=== PATIENT | female | born 1960 | race Two or more races ===

== ENCOUNTER → 2019-07-02 | Outpatient (CLI) | payer OTHER ==
--- NOTE | 2019-07-02 23:05 | EKG REPORT ---
SEVERITY:- BORDERLINE ECG - SINUS RHYTHM BORDERLINE T ABNORMALITIES, INFERIOR LEADS : Confirmed by: Tiffanie Navarro 02-Jul-2019 23:04:35
--- NOTE | 2019-07-03 17:16 | XCELERA REPORT ---
[address] [address] Transthoracic Echocardiogram Report Name: YANN STOUT Age: 58 yrs Gender: Female : 1960 Patient Status: Outpatient Patient Location: Study Date: 07/02/2019 01:04 PM Height: 62 in Weight: 159 lb BSA: 1.7 m2 Procedure: A complete two-dimensional transthoracic echocardiogram was performed (2D, M-mode, spectral and color flow Doppler). The study was technically difficult with many images being suboptimal in quality. Reason For Study: CP Ordering Physician: [facility] Performed By: Nuria Roman Interpretation Summary The study was technically difficult with many images being suboptimal in quality. Left ventricular systolic function is borderline reduced. The left ventricle is grossly normal size. There is mild concentric left ventricular hypertrophy. LV diastolic function could not be adequately assessed. There is apical wall mild hypokinesis The right ventricular systolic function is normal. The left atrial size is normal. The right atrium is normal in size There is a trace amount of mitral regurgitation There is no mitral valve stenosis. No aortic regurgitation is present. There is no aortic valve stenosis No tricuspid regurgitation. There is no tricuspid stenosis. The pulmonic valve is not well visualized. The aortic root is not well visualized but is probably normal size. The inferior vena cava appeared normal and decreased > 50% with respiration (RAP 5-10 mmHg) Minimal pericardial effusion. MMode/2D Measurements & Calculations RVDd: 2.7 cm LVIDd: 5.1 cm FS: 37.4 % Ao root diam: IVSd: 0.83 cm LVIDs: 3.2 cm EDV(Teich): 2.9 cm 122.0 ml Ao root area: LVPWd: 0.94 cm ESV(Teich): 40.1 ml6.8 cm2 EF(Teich): 67.1 % EDV(MOD-sp4): SV(MOD-sp4): 78.9 ml 46.3 ml ESV(MOD-sp4): 32.6 ml EF(MOD-sp4): 58.7 % Doppler Measurements & Calculations MV E max jose armando: MV dec slope: Ao V2 max: LV V1 max P.8 cm/sec 133.5 cm/sec 4.9 mmHg MV A max jose armando: 360.7 cm/sec2 Ao max PG: LV V1 max: 83.8 cm/sec MV dec time: 0.21 sec 7.1 mmHg 111.2 cm/sec MV E/A: 0.89 PA V2 max: Pulm Sys Jose Armando: 70.9 cm/sec 53.3 cm/sec PA max P.0 mmHgPulm Craft Jose Armando: 38.8 cm/sec Pulm A Revs Jose Armando: 24.3 cm/sec Pulm A Revs Dur: 0.13 sec Pulm S/D: 1.4 Left Ventricle The left ventricle is grossly normal size. There is mild concentric left ventricular hypertrophy. Left ventricular systolic function is borderline reduced. LV diastolic function could not be adequately assessed. There is apical wall mild hypokinesis. Right Ventricle The right ventricle is grossly normal size. There is normal right ventricular wall thickness. The right ventricular systolic function is normal. Atria The right atrium is normal in size. The left atrial size is normal. Interarterial septum not well visualized and not well dopplered. Cannot comment on ASD/PFO presence. Mitral Valve The mitral valve leaflets are sclerotic, but show no functional abnormalities. There is no mitral valve stenosis. There is a trace amount of mitral regurgitation. Aortic Valve The aortic valve is not well visualized secondary to technical limitations. There is no aortic valve stenosis. No aortic regurgitation is present. Tricuspid Valve The tricuspid valve is not well visualized secondary to technical limitations. There is no tricuspid stenosis. No tricuspid regurgitation. Pulmonic Valve The pulmonic valve is not well visualized. Great Vessels The aortic root is not well visualized but is probably normal size. The inferior vena cava appeared normal and decreased > 50% with respiration (RAP 5-10 mmHg). Effusions Minimal pericardial effusion. : [facility] Tiffanie Navarro
== END ==
LOC: SP 11:58
DX: R07.9 Chest pain, unspecified (principal)
CPT/HCPCS: 93005; 93010; 93306

== ENCOUNTER 2019-10-05 09:28 | Emergency (ER) | payer OTHER ==
[2019-10-05] MEDS ORDERED: METHYLPREDNISOLONE INJ 125 MG/2 ML SDV IV ONE (09:54)
[2019-10-05] MEDS ORDERED: IPRATROPIUM/ALBUTEROL 0.5-2.5 MG/3 ML AMPUL NEB ONE (09:54)
--- NOTE | 2019-10-05 09:56 | ER Document Report ---
ED Medical Screen (RME) - General Chief Complaint: Asthma Exacerbation Stated Complaint: DIFFICULTY BREATHING Time Seen by Provider: 10/05/19 09:50 Primary Care Provider: MOMO WATTERS [Primary Care Provider] - Follow up as needed Notes: Patient is a 58-year-old female with a history of asthma who presents to the emergency department with a chief complaint of cough. Patient reports she has felt chills and feverish for about 1 week. Patient reports she is had a productive cough with yellow to green sputum. Patient reports she does have sick contacts at home with similar symptoms. Patient reports she has been using her albuterol and her Flovent with minimal relief. Patient reports she still is having a productive constant cough and wheezing. Patient reports she has not been seen by physician in the past week for the symptoms. Patient denies nausea, vomiting or diarrhea. TRAVEL OUTSIDE OF THE [place] IN LAST 30 DAYS: No - Related Data Allergies/Adverse Reactions: No Known Allergies Allergy (Verified 10/05/19 09:37) Home Medications: albuterol. flovent Past Medical History - Social History Chew tobacco use (# tins/day): No Frequency of alcohol use: None Drug Abuse: None Physical Exam - Vital signs Vitals: Temp Pulse Resp BP Pulse Ox 99.5 F 88 20 162/79 H 97 10/05/19 09:32 10/05/19 09:32 10/05/19 09:32 10/05/19 09:32 10/05/19 09:32 - Respiratory Notes: Patient has a constant productive cough during assessment. Patient does have expiratory wheezing noted throughout all lung simon. Course - Re-evaluation Re-evalutation: 10/05/19 09:55 We will initiate chest x-ray, [facility]. I have greeted and performed a rapid initial assessment of this patient. A comprehensive ED assessment and evaluation of the patient, analysis of test results and completion of the medical decision making process will be conducted by additional ED providers. - Vital Signs Vital signs: Temp Pulse Resp BP Pulse Ox 99.5 F 88 20 162/79 H 97 10/05/19 09:38 10/05/19 09:32 12 09:38 10/05/19 09:32 10/05/19 09:38 Doctor's Discharge - Discharge Referrals: MOMO WATTERS [Primary Care Provider] - Follow up as needed
--- NOTE | 2019-10-05 10:31 | RADIOLOGY REPORT (SQ) ---
EXAM DESCRIPTION: CHEST 2 VIEWS COMPLETED DATE/TIME: 10/05/2019 10:04 am REASON FOR STUDY: productive cough x 1 week COMPARISON: None. TECHNIQUE: Frontal and lateral radiographic views of the chest acquired. NUMBER OF VIEWS: Two view. LIMITATIONS: None. FINDINGS: LUNGS AND PLEURA: No opacities, masses or pneumothorax. No pleural effusion. MEDIASTINUM AND HILAR STRUCTURES: No masses or contour abnormalities. HEART AND VASCULAR STRUCTURES: Heart normal size. No evidence for failure. BONES: No acute findings. HARDWARE: None in the chest. OTHER: No other significant finding. IMPRESSION: NO SIGNIFICANT RADIOGRAPHIC FINDING IN THE CHEST. TECHNICAL DOCUMENTATION: JOB ID: [id number] [employer]- All Rights Reserved Reading location - IP/workstation name: [email or web address]
--- NOTE | 2019-10-05 12:35 | ER Document Report ---
HPI - HPI Time Seen by Provider: 10/05/19 09:50 Pain Level: 1 Notes: Patient is a 58-year-old female with history of asthma who presents complaining of wheezing and dry cough over the past week. Patient does have subjective fevers intermittently. There is a similar illness running through the household currently. She is otherwise able to eat and drink without difficulty. She is urinating normally. She does have an inhaler that she has been using at home as well. Denies drug allergies. No other concerns or complaints. Denies any headache, current fever, neck pain, URI, sore throat, chest pain, palpitations, syncope, shortness of breath, dyspnea, abdominal pain, nausea/vomiting/diarrhea, urinary retention, dysuria, hematuria, or rash. - ROS Systems Reviewed and Negative: Yes All other systems reviewed and negative - CONSTITUTIONAL Constitutional: REPORTS: Fever - at night - EENT EENT: REPORTS: Sore Throat - hurts when coug - NEURO Neurology: REPORTS: Headache - with coughing - RESPIRATORY Respiratory: REPORTS: Trouble Breathing, Coughing - REPRODUCTIVE Reproductive: DENIES: : Past Medical History - Social History Smoking Status: Never Smoker Chew tobacco use (# tins/day): No Frequency of alcohol use: None Drug Abuse: None Family History: Reviewed & Not Pertinent Patient has suicidal ideation: No Patient has homicidal ideation: No Pulmonary Medical History: Reports: Hx Asthma Past Surgical History: Reports: Hx Section Vertical Provider Document - CONSTITUTIONAL Agree With Documented VS: Yes Notes: PHYSICAL EXAMINATION: GENERAL: Well-appearing, well-nourished and in no acute distress. A&Ox4. Answers questions appropriately. Moves comfortably w/o notable distress HEAD: Atraumatic, normocephalic. EYES: Pupils equal round and reactive to light, extraocular movements intact, sclera anicteric, conjunctiva are normal. ENT: Nares patent and with clear discharge. oropharynx no erythema without exudates. No tonsilar hypertrophy without erythema or exudate. No palatine shift. Uvula midline. No tongue protrusion. No drooling, hoarseness, or airway compromise. Moist mucous membranes. No sinus tenderness. NECK: Normal range of motion, supple without lymphadenopathy. No rigidity/meningismus. LUNGS: Breath sounds clear to auscultation bilaterally and equal. No wheezes rales or rhonchi. No retractions HEART: Regular rate and rhythm without murmurs, rubs, gallops. ABDOMEN: Soft, nontender, nondistended abdomen. No guarding, no rebound. Normal bowel sounds present. No CVA tenderness bilaterally. NEUROLOGICAL: Normal speech, normal gait. PSYCH: Normal mood, normal affect. SKIN: Warm, Dry, normal turgor, no rashes or lesions noted. - INFECTION CONTROL TRAVEL OUTSIDE OF THE [place] IN LAST 30 DAYS: No Course - Re-evaluation Re-evalutation: 10/05/19 12:33 Patient is an afebrile, well-hydrated, 58-year-old female who presents to the emergency department with an acute URI/asthma exacerbation, suspect viral otherwise. Vitals are acceptable without significant tachycardia, tachypnea, or hypoxia. PE is otherwise unremarkable. She is nontoxic-appearing and is tolerating p.o. without difficulty. Lungs are clear to auscultation bilaterally. CXR unremarkable. Pt recieved solumedrol and a duoneb treatment. No further labs or imaging warranted at this time. Low suspicion for any menin gitis, sepsis, peritonsillar/pharyngeal abscess, respiratory compromise, Harlan's, or other emergent systemic condition at this time. Patient is aware this condition can change from initial presentation and she needs to monitor symptoms closely. Conservative measures otherwise for symptoms. Recheck with your PCM in 2-3 days. Return to the ED with any worsening/concerning symptoms otherwise as reviewed in discharge. Patient is in agreement. - Vital Signs Vital signs: Temp Pulse Resp BP Pulse Ox 99.5 F 88 20 162/79 H 97 10/05/19 09:38 10/05/19 09:32 10/05/19 09:38 10/05/19 09:32 10/05/19 09:38 Discharge - Discharge Clinical Impression: Acute URI Asthma exacerbation Qualifiers: Asthma severity: mild Asthma persistence: intermittent Qualified Code(s): J 45.21 - Mild intermittent asthma with (acute) exacerbation Condition: Stable Disposition: HOME, SELF-CARE Instructions: Upper Respiratory Illness ([facility]), Asthma ([facility]) Additional Instructions: Maintain adequate fluid intake tylenol/ibuprofen as needed alternating every 3 hours for fever/body ache over the counter cold medication as needed for symptoms Humidified air may help Wash your hands regularly Wear a mask when coughing F/u: with your PCM in 2-3 days for a recheck Return to the ED with any fever, altered mental status/behavior, chest pain, palpitations, syncope, headache, neck pain/stiffness, shortness of breath, chest pains, wheezing, drooling, trouble swallowing/breathing, abdominal pain, n/v/d, rash, or worsening/concerning symptoms otherwise. Prescriptions: Prednisone [Deltasone 20 mg Tablet] 3 tab PO DAILY 4 Days tablet Forms: Elevated Blood Pressure Referrals: [facility] [Primary Care Provider] - Follow up as needed
[2019-10-05 12:52] VITALS: BP 143/66
== END 2019-10-05 12:49 | disposition home or self-care (01) ==
LOC: ER 09:28
DX: J06.9 Acute upper respiratory infection, unspecified (principal); J45.21 Mild intermittent asthma with (acute) exacerbation; R05 Cough; R50.9 Fever, unspecified; J02.9 Acute pharyngitis, unspecified; R51 Headache
CPT/HCPCS: 94640; 99284; 96374; 71046; J2930; J7620

== ENCOUNTER 2019-10-17 13:35 | Emergency (ER) | payer OTHER ==
[2019-10-17] MEDS ORDERED: IPRATROPIUM/ALBUTEROL 0.5-2.5 MG/3 ML AMPUL NEB ONE ×2 (14:51→17:45)
--- NOTE | 2019-10-17 15:07 | ER Document Report ---
ED Medical Screen (RME) - General Chief Complaint: Breathing Difficulty Stated Complaint: BREATHING DIFFICULTY Time Seen by Provider: 10/17/19 14:44 Primary Care Provider: [facility] [Primary Care Provider] - Follow up as needed TRAVEL OUTSIDE OF THE [place] IN LAST 30 DAYS: No - HPI Notes: 10/17/19 14:52 59-year-old female with a history of asthma presents emergency room for difficulty breathing and a cough that is been occurring for the last month. Patient was seen in the emergency room on September she was prescribed steroids for asthma exacerbation. She was advised to follow-up with primary care provider, however her primary care provider at [facility] called out today, so they had to cancel the appointment. the nurse at the clinic advised to come to the ER because her symptoms become progressively worse with a pulse ox of 96%, advised to come to the emergency room. Patient states she took the prednisone, did give some relief however her symptoms are worse in the last 2 days. Patient reports chills at nighttime. Denies any chest pain, shortness of breath, nausea vomiting or diarrhea. Has not tried any [id number] medications besides that was prescribed to her. I have greeted and performed a rapid initial assessment of this patient. A comprehensive ED assessment and evaluation of the patient, analysis of test results and completion of the medical decision making process will be conducted by additional ED providers. PHYSICAL EXAMINATION: GENERAL: Well-appearing, well-nourished and in no acute distress. HEAD: Atraumatic, normocephalic. EYES: Pupils equal round extraocular movements intact, conjunctiva are normal. NECK: Normal range of motion CV: s1, s2 regular LUNGS: Diminished breath sounds in bilateral upper lobes with wheezing Musculoskeletal: Normal range of motion NEUROLOGICAL: Normal speech, normal gait. SKIN: Warm, Dry, normal turgor, no rashes or lesions noted. - Related Data Allergies/Adverse Reactions: No Known Allergies Allergy (Verified 10/17/19 14:35) Past Medical History - Social History Chew tobacco use (# tins/day): No Frequency of alcohol use: None Drug Abuse: None Pulmonary Medical History: Reports: Hx Asthma Past Surgical History: Reports: Hx Section Physical Exam - Vital signs Vitals: Temp Pulse Resp BP Pulse Ox 97.9 F 68 18 156/80 H 96 10/17/19 13:39 10/17/19 13:39 10/17/19 13:39 10/17/19 13:39 10/17/19 13:39 Course - Vital Signs Vital signs: Temp Pulse Resp BP Pulse Ox 97.9 F 68 18 156/80 H 96 10/17/19 14:35 10/17/19 14:35 10/17/19 14:35 10/17/19 14:35 10/17/19 14:35 Doctor's Discharge - Discharge Referrals: [facility] [Primary Care Provider] - Follow up as needed
--- NOTE | 2019-10-17 15:33 | RADIOLOGY REPORT (SQ) ---
EXAM DESCRIPTION: CHEST 2 VIEWS COMPLETED DATE/TIME: 10/17/2019 3:19 pm REASON FOR STUDY: cough x 1 month, chills, pulse ox 96% COMPARISON: 10/05/2019 TECHNIQUE: Frontal and lateral radiographic views of the chest acquired. NUMBER OF VIEWS: Two view. LIMITATIONS: None. FINDINGS: LUNGS AND PLEURA: No opacities, masses or pneumothorax. No pleural effusion. MEDIASTINUM AND HILAR STRUCTURES: No masses or contour abnormalities. HEART AND VASCULAR STRUCTURES: Heart normal size. No evidence for failure. BONES: No acute findings. HARDWARE: None in the chest. OTHER: No other significant finding. IMPRESSION: NO SIGNIFICANT RADIOGRAPHIC FINDING IN THE CHEST. TECHNICAL DOCUMENTATION: JOB ID: [id number] [employer]- All Rights Reserved Reading location - IP/workstation name: [email or web address]
[2019-10-17 15:34] LABS: ABSOLUTE BASOPHILS # (AUTO) 0.1 10^3/uL (0.0-0.2); ABSOLUTE EOSINOPHILS # (AUTO) 0.2 10^3/uL (0.0-0.6); ABSOLUTE LYMPHOCYTES (AUTO) 1.7 10^3/uL (0.5-4.7); ABSOLUTE MONOCYTES (AUTO) 0.8 10^3/uL (0.1-1.4); ABSOLUTE NEUT (AUTO) 11.2 10^3/uL (1.7-8.2); BASOPHILS % (AUTO) 0.5 % (0-2); EOSINOPHILS % (AUTO) 1.2 % (0-6); HEMATOCRIT 41.4 % (36.0-47.0); HEMOGLOBIN 13.9 g/dL (12.0-15.5); LYMPHOCYTES % (AUTO) 11.9 % (13-45); MEAN CORPUSCULAR HEMOGLOBIN 29.7 pg (27.0-33.4); MEAN CORPUSCULAR HGB CONC 33.6 g/dL (32.0-36.0); MEAN CORPUSCULAR VOLUME 89 fl (80-97); MONOCYTES % (AUTO) 5.7 % (3-13); PLATELET COUNT 361 10^3/uL (150-450); RED BLOOD COUNT 4.67 10^6/uL (3.72-5.28); RED CELL DISTRIBUTION WIDTH 13.4 % (11.5-14.0); SEGMENTED NEUTROPHILS % (AUTO) 80.7 % (42-78); TOTAL CELLS COUNTED % (AUTO) 100 %; WHITE BLOOD COUNT 13.9 10^3/uL (4.0-10.5)
[2019-10-17 15:50] LABS: ALBUMIN 4.5 g/dL (3.5-5.0); ALKALINE PHOSPHATASE 101 U/L (38-126); ANION GAP 12 (5-19); ASPARTATE AMINO TRANSFERASE 26 U/L (14-36); BILIRUBIN,DIRECT 0.1 mg/dL (0.0-0.4); BILIRUBIN,TOTAL 0.6 mg/dL (0.2-1.3); BLOOD UREA NITROGEN 10 mg/dL (7-20); CALCIUM 10.3 mg/dL (8.4-10.2); CARBON DIOXIDE 27 mmol/L (22-30); CHLORIDE 101 mmol/L (98-107); GLUCOSE 100 mg/dL (75-110); POTASSIUM 4.8 mmol/L (3.6-5.0)
--- NOTE | 2019-10-17 17:42 | ER Document Report ---
ED General - General Chief Complaint: Breathing Difficulty Stated Complaint: BREATHING DIFFICULTY Time Seen by Provider: 10/17/19 14:44 Primary Care Provider: [facility] [Primary Care Provider] - Follow up in 3-5 days TRAVEL OUTSIDE OF THE [place] IN LAST 30 DAYS: No - HPI Notes: 59-year-old female to the emergency department with complaints of cough and shortness of breath that been ongoing for over 2 weeks. She states that she was seen in the emergency department about a week and a half ago and put on steroids. She states that she completely took the steroids but her cough persists. She does have a history of asthma and she does feel like her asthma is acting up. She denies any fevers or chills. She states that she has been coughing so much that now her lower back hurts. She denies any recent history of intubation or hospitalization for her asthma. She does not smoke she lives with her son. - Related Data Allergies/Adverse Reactions: No Known Allergies Allergy (Verified 10/17/19 14:35) Past Medical History - Social History Smoking Status: Former Smoker Chew tobacco use (# tins/day): No Frequency of alcohol use: None Drug Abuse: None Family History: Reviewed & Not Pertinent Patient has suicidal ideation: No Patient has homicidal ideation: No Pulmonary Medical History: Reports: Hx Asthma Past Surgical History: Reports: Hx Section Review of Systems - Review of Systems Constitutional: denies: Chills, Fever EENT: denies: Ear pain, Nose congestion, Sinus pressure, Throat pain Cardiovascular: denies: Chest pain, Palpitations, Syncope, Dizziness, Lightheaded Respiratory: See HPI, Cough, Hurts to breathe, Short of breath, Wheezing Gastrointestinal: denies: Abdominal pain, Diarrhea, Nausea, Vomiting Genitourinary: No symptoms reported Female Genitourinary: No symptoms reported Musculoskeletal: No symptoms reported Skin: No symptoms reported Hematologic/Lymphatic: No symptoms reported Neurological/Psychological: No symptoms reported -: Yes All other systems reviewed and negative Physical Exam - Vital signs Vitals: Temp Pulse Resp BP Pulse Ox 97.9 F 68 18 156/80 H 96 10/17/19 13:39 10/17/19 13:39 10/17/19 13:39 10/17/19 13:39 10/17/19 13:39 Interpretation: Hypertensive - General General appearance: Appears well, Alert In distress: None - HEENT Head: Normocephalic, Atraumatic Eyes: Normal Pupils: PERRL Ears: Normal External canal: Normal Tympanic membrane: Normal Sinus: Normal Nasal: Normal Mouth/Lips: Normal Mucous membranes: Normal Pharynx: Normal. No: Potential airway comprom. Neck: Normal, Supple. No: Lymphadenopathy, Meningismus - Respiratory Respiratory status: No respiratory distress. No: Pursed lip breathing, Tachypn ea, Tripod position Chest status: Nontender. No: Accessory muscle use Breath sounds: Decreased air movement - decreased breath sounds throughout, Whe ezing - scattered expiratory wheezes. No: Rales, Rhonchi Chest palpation: Normal - Cardiovascular Rhythm: Regular Heart sounds: Normal auscultation Murmur: No - Abdominal Inspection: Normal Distension: No distension Bowel sounds: Normal Tenderness: Nontender Organomegaly: No organomegaly - Back Back: Normal, Nontender - Neurological Neuro grossly intact: Yes Cognition: Normal Orientation: AAOx4 Garner Coma Scale Eye Opening: Spontaneous Garner Coma Scale Verbal: Oriented Garner Coma Scale Motor: Obeys Commands Rolly Coma Scale Total: 15 Speech: Normal Cranial nerves: Normal Cerebellar coordination: Normal Motor strength normal: LUE, RUE, LLE, RLE Additional motor exam normals: Equal pheresis specialist Sensory: Normal - Psychological Associated symptoms: Normal affect, Normal mood - Skin Skin Temperature: Warm Skin Moisture: Dry Skin Color: Normal Course - Re-evaluation Re-evalutation: 10/20/19 Impression: Bronchitis with bronchospasm with asthma. Noted slightly elevated WBC -- likely from steroid use. Vitals are stable -- patient not in respiratory distress. I will treat with a round of Abx, since that has been ongoing for so long and her history of asthma -- give another steroid dose pack, cough medicine, albuterol. Patient agrees with the plan, will have her follow up with PCP without fail. Strict return precautions if worsening SOB, chest pain, or any other concerning symptoms. - Vital Signs Vital signs: Temp Pulse Resp BP Pulse Ox 98.5 F 72 18 144/75 H 97 10/17/19 18:05 10/17/19 18:05 10/17/19 18:05 10/17/19 18:05 10/17/19 18:05 - Laboratory Result Diagrams: 10/17/19 15:10 12/19/19 15:10 Laboratory results interpreted by me: 10/17/19 10/17/19 15:10 15:10 WBC 13.9 H Lymph % (Auto) 11.9 L Absolute Neuts (auto) 11.2 H Seg Neutrophils % 80.7 H Calcium 10.3 H - Diagnostic Test Radiology reviewed: Image reviewed, Reports reviewed Discharge - Discharge Clinical Impression: Bronchitis Condition: Stable Disposition: HOME, SELF-CARE Instructions: Bronchitis With Bronchospasm (Wheezing) ([facility]) Additional Instructions: COMPLETE STEROIDS. COMPLETE ANTIBIOTICS. PUSH FLUIDS. USE INCENTIVE SPIROMETRY. RETURN IF WORSENING SYMPTOM. FOLLOW UP WITH PRIMARY CARE. Prescriptions: Doxycycline Monohydrate 100 mg PO BID #20 tablet Hydrocodone/Chlorphen P-Stirex [Hydrocodone-Chlorphen ER Susp] 5 ml PO BID #60 ml Methylprednisolone [Medrol Dosepack (4 mg/Tab) 21 Tab/Dosepak] 4 mg PO ASDIR PRN #21 tab.ds.pk PRN Reason: Referrals: [facility] [Primary Care Provider] - Follow up in 3-5 days
[2019-10-17 18:10] VITALS: BP 144/75
== END 2019-10-17 18:11 | disposition home or self-care (01) ==
LOC: ER 13:35
DX: J40 Bronchitis, not specified as acute or chronic (principal); R06.00 Dyspnea, unspecified
CPT/HCPCS: 94640; 99285; 36415; 85025; 80053; 71046; J7620